=== PATIENT | male | born 2000 | race African-American/Black ===

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

== ENCOUNTER 2024-10-10 13:59 | Emergency (ER) | payer MEDICAID ==
[~2024-10-10] VITALS: Ht 195.6 cm; Wt 130.0 kg
[2024-10-10 14:11] VITALS: O2SAT 99
[2024-10-10 15:16] LABS: CHLORIDE 109 mEq/L (98-107); POTASSIUM 3.9 mEq/L (3.5-5.1); SODIUM 139 mEq/L (136-145)
[2024-10-10 15:17] LABS: CALCIUM 8.9 mg/dL (8.7-10.4); CARBON DIOXIDE 25 mEq/L (21-32)
[2024-10-10 15:22] LABS: CREATININE 1.2 mg/dL (0.6-1.3); GLUCOSE 91 mg/dL (70-105); UREA NITROGEN BLOOD 11 mg/dL (9-23)
[2024-10-10 15:26] LABS: BASOPHILS % 0.2 % (0.0-2.0); EOSINOPHILS % 2.3 % (0.0-5.0); HEMATOCRIT. 44.7 % (42.0-52.0); HEMOGLOBIN. 14.8 g/dL (14.0-18.0); LYMPHOCYTES % 8.8 % (20.0-50.0); MEAN CORPUSCULAR HEMOGLOBIN 30.3 pg (28.0-32.0); MEAN CORPUSCULAR HGB CONC 33.2 g/dL (31.0-37.0); MEAN CORPUSCULAR VOLUME 91.3 fL (80.0-94.0); MEAN PLATELET VOLUME 10.2 fl (7.4-10.4); MONOCYTES % 6.1 % (2.0-8.0); NEUTROPHILS % 82.6 % (40.0-76.0); PLATELET 177 x1000/uL (130-400); RED CELL DISTRIBUTION WIDTH 13.5 % (11.6-14.6); WHITE BLOOD COUNT 9.3 x1000/uL (4.5-11.0)
[2024-10-10] MEDS: ONDANSETRON 4MG ODT PO ONE (16:28)
[2024-10-10 18:15] VITALS: BP 126/70; PULSE 67; RESP 18; TEMP 36.8; O2SAT 98
== END 2024-10-10 18:15 | disposition home or self-care (01) ==
LOC: ER 13:59
DX: R11.2 Nausea with vomiting, unspecified (principal)
CPT/HCPCS: 99283; 80048; 85025; 36415; Q0162